=== PATIENT | female | born 1945 | race Caucasian/White ===

== ENCOUNTER 2016-11-01 17:29 | Inpatient (IN) | payer MEDICARE, BC, MEDICAID ==
[~2016-11-01 17:29] MED LIST: ACTOS15 MG PO; ADVAIR 25028 BLISTER INH; ALBUTEROL I0.5 ML/EA AERO NEB; ALIGN4 MG PO; ASPIR 8181 MG PO; BUSPAR15 MG PO; CIMETIDINE300 MG PO; CYCLOBENZAPRINE10 MG PO; CYMBALTA60 MG PO; FLAGYL500 MG PO; FLEXERIL5 MG PO; GLUCOPHAGE XR500 MG PO; GLUCOPHAGE500 M1 PO; GLUCOPHAGE500 MG PO; GLUCOPHAGE500 MG/TA1 PO; GLYBURIDE5 MG PO; H PO; HUMALOG100 U/ML SQ; LEVOTHROID25 MCG PO; LEVOTHYROXINE PO; LEVOXYL25 MCG PO; LEXAPRO20 MG; LOW DOSE ASPIRI81 M1 PO; LYRICA75 MG PO; METOPROLOL SUCC25 MG PO; MOBIC15 MG PO; NEURONTIN300 MG PO; NEXIUM40 MG PO; NORCO 5/325 TAB1 TAB PO; NORCO 5/3251 TAB PO; OMEPRAZOLE20 MG PO; PRADAXA150 MG PO; REQUIP; REQUIP1 MG PO; ROPINIROLE HCL1 MG PO; SENNA-S TABLET1 TAB PO; SIMVASTATIN20 MG PO; SKELAXIN800 M1 PO; TRAMADOL HCL50 MG; TYLENOL500 MG PO; VENTOLIN HFA18 G1 IH; VITAMIN B-1000 MCG/ IJ; VITAMIN D50000 UNIT PO; ZOCOR20 MG PO; ZOFRAN8 MG; ZYRTEC-D TABLE1 EACH PO
[2016-11-01] MEDS ORDERED: LASIX20 M1 PO (17:56)
[2016-11-01] MEDS ORDERED: VITAMIN D250000 UNI1 PO (17:56)
[2016-11-01] MEDS ORDERED: REQUIP2 M1 PO (17:56)
[2016-11-01] MEDS ORDERED: POTASSIUM CHLO20 ME3 PO (17:57)
[2016-11-01] MEDS ORDERED: ZOCOR20 M1 PO (17:57)
[2016-11-01] MEDS ORDERED: FLONASE ALLERG9.9 ML (17:58)
[2016-11-01] MEDS ORDERED: GLUCOPHAGE500 M3 PO (17:58)
[2016-11-01] MEDS ORDERED: ZYRTEC10 M7 PO (17:59)
[2016-11-01] MEDS ORDERED: NUCYNTA ER150 M1 PO (17:59)
[2016-11-01] MEDS ORDERED: SINGULAIR10 M1 PO (17:59)
[2016-11-01] MEDS ORDERED: JARDIANCE25 MG PO (18:00)
[2016-11-01] MEDS ORDERED: OMEPRAZOLE20 M3 PO (18:00)
[2016-11-01] MEDS ORDERED: LINZESS145 MC1 PO (18:00)
[2016-11-01] MEDS ORDERED: PRADAXA150 M1 PO (18:00)
[2016-11-01] MEDS ORDERED: SPIRIVA18 MC1 INH (18:00)
[2016-11-01] MEDS ORDERED: VENTOLIN HFA18 G2 INH (18:01)
[2016-11-01] MEDS ORDERED: ADVAIR 50028 BLISTE1 INH (18:01)
[2016-11-01] MEDS ORDERED: ONGLYZA5 M1 PO (18:01)
[2016-11-01] MEDS ORDERED: BUSPIRONE HCL15 M2 PO (18:02)
[2016-11-01] MEDS ORDERED: CYMBALTA60 M1 PO (18:02)
[2016-11-01] MEDS ORDERED: COREG6.25 M1 PO (18:02)
[2016-11-01] MEDS ORDERED: LYRICA100 MG/CAP PO (18:02)
[2016-11-01 19:04] LABS: BASO % 0.2 % (0-2); EOS % 2.4 % (0-7); EOSINOPHIL ABSOLUTE COUNT 0.2 tho/cmm (0.0-0.7); HCT-HEMATOCRIT 37.7 % (34.0-49.0); HGB-HEMOGLOBIN 11.6 gm/dl (12.0-15.5); IMMATURE GRANULOCYTES ABSOLUTE 0.01 tho/cmm (0-0.03); IMMATURE GRANULOCYTES PERCENT 0.2 % (0-0.3); LYMPH % 16.2 % (20-45); MCH (MEAN CORPUSCULAR HGB) 25.8 pg (28.0-32.0); MCHC MEAN CORPUSCULAR HGB CONC 30.8 % (32.0-36.0); MCV (MEAN CELL VOLUME) 83.8 fl (82.0-96.0); MEAN PLATELET VOLUME 10.8 cmc (9.4-12.4); MONO % 17.5 % (0-12); MONOCYTE ABSOLUTE COUNT 1.1 tho/cmm (0.0-1.2); NEUTROPHIL ABSOLUTE COUNT 3.9 tho/cmm (1.6-8.0); NEUTROPHIL-AUTOMATED 3.9 tho/cmm (1.6-8.0); NEUTROPHILS % 63.5 % (40-80); PLATELET COUNT 181 tho/cmm (150-450); RED CELL DISTRIBUTION WIDTH 14.8 % (12.4-16.4); WHITE BLOOD COUNT 6.2 tho/cmm (4.0-10.0)
[2016-11-01 19:22] LABS: ALB/GLOB RATIO 0.9 (0.8-2.0); ALBUMIN 3.2 g/dl (3.5-5.0); ALKALINE PHOSPHATASE 80 U/L (33-138); ALT/SGPT 29 U/L (12-78); ANION GAP 11 mmol/L (0-20); AST/SGOT 31 U/L (10-40); BILIRUBIN,DIRECT 0.4 mg/dl (0.0-0.3); BILIRUBIN,INDIRECT 0.4 mg/dL (0.0-1.0); BILIRUBIN,TOTAL 0.8 mg/dl (0-1.5); BLOOD UREA NITROGEN 14 mg/dl (6-24); CALCIUM 8.7 mg/dl (8.5-10.5); CARBON DIOXIDE-VENOUS 31 mmol/L (22-32); CHLORIDE 106 mmol/l (96-110); CREATININE 0.86 mg/dl (0.50-1.10); GLUCOSE 141 mg/dL (70-110); POTASSIUM 3.7 mmol/L (3.7-5.1); SODIUM 144 mmol/L (135-145); eGFR VALUE FOR BLACK >60 mL/Min
[2016-11-01 19:45] LABS: URINE BILIRUBIN NEGATIVE (NEG); URINE BLOOD MODERATE (NEG); URINE GLUCOSE (UA) LARGE (NEG); URINE KETONE NEGATIVE (NEG); URINE LEUKOCYTE ESTERASE POSITIVE (NEG); URINE NITRITE POSITIVE (NEG); URINE PROTEIN NEGATIVE (NEG)
[2016-11-01 19:48] LABS: URINE APPEARANCE HAZY; URINE COLOR YELLOW; URINE SPECIFIC GRAVITY 1.013 (1.003-1.030)
[2016-11-01 19:56] LABS: URINE BACTERIA 3+; URINE RBC 0 /[HPF] (0-5); URINE WBC 0 /[HPF] (0-5)
[2016-11-01 23:45] LABS: PROCALCITONIN 0.12 ng/ml (0.05-0.09)
[2016-11-02 00:54] LABS: INR 1.5 INR (0.9-1.1); PROTHROMBIN TIME 18.2 SECONDS (9.0-13.6)
[2016-11-02 04:18] LABS: BASO % 0.2 % (0-2); EOS % 2.8 % (0-7); EOSINOPHIL ABSOLUTE COUNT 0.2 tho/cmm (0.0-0.7); HCT-HEMATOCRIT 35.6 % (34.0-49.0); HGB-HEMOGLOBIN 10.8 gm/dl (12.0-15.5); IMMATURE GRANULOCYTES ABSOLUTE 0.01 tho/cmm (0-0.03); IMMATURE GRANULOCYTES PERCENT 0.2 % (0-0.3); LYMPH % 23.3 % (20-45); LYMPH ABSOLUTE COUNT 1.2 tho/cmm (0.8-4.5); MCH (MEAN CORPUSCULAR HGB) 25.4 pg (28.0-32.0); MCHC MEAN CORPUSCULAR HGB CONC 30.3 % (32.0-36.0); MCV (MEAN CELL VOLUME) 83.6 fl (82.0-96.0); MEAN PLATELET VOLUME 11.3 cmc (9.4-12.4); MONO % 18.8 % (0-12); NEUTROPHIL ABSOLUTE COUNT 2.9 tho/cmm (1.6-8.0); NEUTROPHIL-AUTOMATED 2.9 tho/cmm (1.6-8.0); NEUTROPHILS % 54.7 % (40-80); PLATELET COUNT 164 tho/cmm (150-450); RED BLOOD COUNT 4.26 mil/cmm (4.00-5.20); RED CELL DISTRIBUTION WIDTH 14.8 % (12.4-16.4); WHITE BLOOD COUNT 5.3 tho/cmm (4.0-10.0)
[2016-11-02 04:33] LABS: INR 1.5 INR (0.9-1.1); PROTHROMBIN TIME 17.4 SECONDS (9.0-13.6)
[2016-11-02 04:49] LABS: ALB/GLOB RATIO 0.9 (0.8-2.0); ALBUMIN 2.7 g/dl (3.5-5.0); ALKALINE PHOSPHATASE 68 U/L (33-138); ALT/SGPT 21 U/L (12-78); ANION GAP 11 mmol/L (0-20); AST/SGOT 21 U/L (10-40); BILIRUBIN,TOTAL 0.6 mg/dl (0-1.5); BLOOD UREA NITROGEN 9 mg/dl (6-24); CALCIUM 7.9 mg/dl (8.5-10.5); CARBON DIOXIDE-VENOUS 31 mmol/L (22-32); CHLORIDE 108 mmol/l (96-110); CREATININE 0.58 mg/dl (0.50-1.10); GLUCOSE 75 mg/dL (70-110); POTASSIUM 3.5 mmol/L (3.7-5.1); SODIUM 146 mmol/L (135-145); eGFR VALUE FOR BLACK >60 mL/Min
[2016-11-04] MEDS ORDERED: ZITHROMAX250 M1 PO (13:01)
[2016-11-04] MEDS ORDERED: KEFLEX500 M4 PO (13:02)
[2016-11-04] MEDS ORDERED: PREDNISONE10 M1 PO (13:07)
[2016-11-18] MEDS ORDERED: LYRICA100 MG/CAP PO (14:24)
[2016-11-18] MEDS ORDERED: BUSPIRONE HCL15 M2 PO (14:24)
[2016-11-18] MEDS ORDERED: LASIX20 M1 PO (14:25)
[2016-11-18] MEDS ORDERED: ZYRTEC10 M7 PO (14:25)
[2016-11-18] MEDS ORDERED: GLUCOPHAGE500 M3 PO (14:26)
[2016-11-18] MEDS ORDERED: JARDIANCE25 MG PO (14:26)
[2016-11-18] MEDS ORDERED: SINGULAIR10 M1 PO (14:26)
[2016-11-18] MEDS ORDERED: OMEPRAZOLE20 M3 PO (14:26)
[2016-11-18] MEDS ORDERED: ZOCOR20 M1 PO (14:27)
[2016-11-18] MEDS ORDERED: ONGLYZA5 M1 PO (14:27)
[2016-11-18] MEDS ORDERED: POTASSIUM CHLO20 ME3 PO (14:27)
[2016-11-18] MEDS ORDERED: REQUIP2 M1 PO (14:27)
[2016-11-18] MEDS ORDERED: VITAMIN D250000 UNI1 PO (14:28)
[2016-11-18] MEDS ORDERED: LINZESS145 MC1 PO (14:29)
[2016-11-18] MEDS ORDERED: ADVAIR 50028 BLISTE1 INH (14:29)
[2016-11-18] MEDS ORDERED: ALBUTEROL2.5 MG/3 M INH (14:29)
[2016-11-18] MEDS ORDERED: FLONASE ALLERG9.9 ML (14:30)
[2016-11-18] MEDS ORDERED: SPIRIVA18 MC1 INH (14:30)
[2016-11-18] MEDS ORDERED: VENTOLIN HFA18 G2 INH (14:31)
[2016-11-18] MEDS ORDERED: NUCYNTA ER150 M1 PO (14:31)
[2016-11-18] MEDS ORDERED: COREG6.25 M1 PO (14:32)
[2016-11-18] MEDS ORDERED: CYMBALTA60 M1 PO (14:32)
[2016-11-18] MEDS ORDERED: PRADAXA150 M1 PO (14:32)
[2016-11-22] MEDS ORDERED: PREDNISONE10 M1 PO (12:26)
[2016-11-22] MEDS ORDERED: NYSTATIN15 G1 TP (12:29)
== END 2016-11-04 13:50 | disposition home health service (06) | DRG 871 ==
LOC: EDMED 17:29 → EMR2 23:12 → PCUA 11-02 02:16
PROVIDERS: Emergency Medicine; Hospitalist; ADMIT Internal Medicine
DX: A41.89 Other specified sepsis (principal); J96.21 Acute and chronic respiratory failure with hypoxia; J18.9 Pneumonia, unspecified organism; N39.0 Urinary tract infection, site not specified; E11.9 Type 2 diabetes mellitus without complications; J44.0 Chronic obstructive pulmonary disease with (acute) lower respiratory infection; Z99.81 Dependence on supplemental oxygen; I48.2 Chronic atrial fibrillation; B96.20 Unspecified Escherichia coli [E. coli] as the cause of diseases classified elsewhere; J44.1 Chronic obstructive pulmonary disease with (acute) exacerbation; R65.20 Severe sepsis without septic shock; J06.9 Acute upper respiratory infection, unspecified; F32.9 Major depressive disorder, single episode, unspecified; E78.5 Hyperlipidemia, unspecified; E03.9 Hypothyroidism, unspecified; K21.9 Gastro-esophageal reflux disease without esophagitis; Z85.42 Personal history of malignant neoplasm of other parts of uterus; Z79.01 Long term (current) use of anticoagulants; Z86.010 Personal history of colon polyps; Z95.0 Presence of cardiac pacemaker; Z87.891 Personal history of nicotine dependence; Z79.84 Long term (current) use of oral hypoglycemic drugs
CPT/HCPCS: J0456; J0696; J1815; J2930; J3370; J7030; J7050; J7512

== ENCOUNTER 2016-12-04 14:52 | Emergency (ER) | payer MEDICARE, BC, MEDICAID ==
[~2016-12-04 14:52] MED LIST changes: +ADVAIR 50028 BLISTE1 INH; +ALBUTEROL2.5 MG/3 M INH; +BUSPIRONE HCL15 M2 PO; +COREG6.25 M1 PO; +CYMBALTA60 M1 PO; +FLONASE ALLERG9.9 ML; +GLUCOPHAGE500 M3 PO; +JARDIANCE25 MG PO; +KEFLEX500 M4 PO; +LASIX20 M1 PO; +LINZESS145 MC1 PO; +LYRICA100 MG/CAP PO; +NUCYNTA ER150 M1 PO; +NYSTATIN15 G1 TP; +OMEPRAZOLE20 M3 PO; +ONGLYZA5 M1 PO; +POTASSIUM CHLO20 ME3 PO; +PRADAXA150 M1 PO; +PREDNISONE10 M1 PO; +REQUIP2 M1 PO; +SINGULAIR10 M1 PO; +SPIRIVA18 MC1 INH; +VENTOLIN HFA18 G2 INH; +VITAMIN D250000 UNI1 PO; +ZITHROMAX250 M1 PO; +ZOCOR20 M1 PO; +ZYRTEC10 M7 PO
[2016-12-04 16:24] LABS: BASO % 0.2 % (0-2); EOS % 1.9 % (0-7); EOSINOPHIL ABSOLUTE COUNT 0.1 tho/cmm (0.0-0.7); HCT-HEMATOCRIT 43.4 % (34.0-49.0); HGB-HEMOGLOBIN 13.8 gm/dl (12.0-15.5); IMMATURE GRANULOCYTES ABSOLUTE 0.05 tho/cmm (0-0.03); IMMATURE GRANULOCYTES PERCENT 0.8 % (0-0.3); LYMPH % 16.2 % (20-45); MCH (MEAN CORPUSCULAR HGB) 25.6 pg (28.0-32.0); MCHC MEAN CORPUSCULAR HGB CONC 31.8 % (32.0-36.0); MCV (MEAN CELL VOLUME) 80.4 fl (82.0-96.0); MEAN PLATELET VOLUME 11.9 cmc (9.4-12.4); MONO % 9.6 % (0-12); MONOCYTE ABSOLUTE COUNT 0.6 tho/cmm (0.0-1.2); NEUTROPHIL ABSOLUTE COUNT 4.4 tho/cmm (1.6-8.0); NEUTROPHIL-AUTOMATED 4.4 tho/cmm (1.6-8.0); NEUTROPHILS % 71.3 % (40-80); PLATELET COUNT 141 tho/cmm (150-450); RED CELL DISTRIBUTION WIDTH 15.1 % (12.4-16.4); WHITE BLOOD COUNT 6.2 tho/cmm (4.0-10.0)
[2016-12-04 16:29] LABS: KETONE-BETA (WHOLE BLOOD) 0.2 mmol/L (0.0-0.6)
[2016-12-04 16:36] LABS: URINE APPEARANCE CLEAR; URINE BILIRUBIN NEGATIVE (NEG); URINE BLOOD NEGATIVE (NEG); URINE COLOR PALE YELLOW; URINE GLUCOSE (UA) LARGE (NEG); URINE KETONE NEGATIVE (NEG); URINE LEUKOCYTE ESTERASE NEGATIVE (NEG); URINE NITRITE NEGATIVE (NEG); URINE PROTEIN NEGATIVE (NEG)
[2016-12-04 16:38] LABS: ANION GAP 11 mmol/L (0-20); BLOOD UREA NITROGEN 23 mg/dl (6-24); CALCIUM 8.8 mg/dl (8.5-10.5); CARBON DIOXIDE-VENOUS 30 mmol/L (22-32); CHLORIDE 98 mmol/l (96-110); CREATININE 1.39 mg/dl (0.50-1.10); GLUCOSE 449 mg/dL (70-110); SODIUM 135 mmol/L (135-145); eGFR VALUE FOR BLACK 44 mL/Min
[2016-12-04 16:49] LABS: POTASSIUM 3.8 mmol/L (3.7-5.1)
== END 2016-12-04 21:40 ==
LOC: EDMED 14:52
PROVIDERS: Emergency Medicine
DX: E11.65 Type 2 diabetes mellitus with hyperglycemia (principal); N17.9 Acute kidney failure, unspecified; E86.0 Dehydration; I48.91 Unspecified atrial fibrillation; J44.9 Chronic obstructive pulmonary disease, unspecified; Z79.51 Long term (current) use of inhaled steroids; Z79.899 Other long term (current) drug therapy
CPT/HCPCS: J7030